=== PATIENT | female | born 1970 | race Caucasian/White ===

== ENCOUNTER → 2024-08-16 | Day surgery (SDC) | payer OTHER ==
[~2024-08-16] MED LIST: AMANTADINE100 MG; AZILECT0.5 MG PO; CYCLOBENZAPRINE5 MG PO; GLYCOPYRROLATE INJ 0.2 MG/ML VIAL ONE; LASIX40 MG PO; LIDOCAINE HCL 2% LOCAL INJ 5 ML SDV VIAL INJ ONE; MIDAZOLAM HCL 2 MG/2 ML VIAL ONE; POTASSIUM CHLO20 ME1 PO; PROPOFOL IV EMULSION 10 MG/ML 20 ML VIAL ONE; PROPRANOLOL HCL40 MG PO; SYNTHROID125 MCG PO
[2024-08-16] MEDS: LACTATED RINGER'S 1,000 ML ONE (09:54)
[2024-08-16 11:38] VITALS: TEMP 97.8
[2024-08-16 11:50] VITALS: BP 130/72; PULSE 56; RESP 15; O2SAT 99
== END | disposition home or self-care (01) ==
LOC: OR 08:45 → EDSEX 10:30
PROVIDERS: ATTEND Internal Medicine Gastroenterology
DX: Z12.11 Encounter for screening for malignant neoplasm of colon (principal); G20.A1 Parkinson's disease without dyskinesia, without mention of fluctuations; E06.3 Autoimmune thyroiditis; R03.0 Elevated blood-pressure reading, without diagnosis of hypertension; F17.290 Nicotine dependence, other tobacco product, uncomplicated; Z88.8 Allergy status to other drugs, medicaments and biological substances; Z01.810 Encounter for preprocedural cardiovascular examination; Z79.899 Other long term (current) drug therapy
CPT/HCPCS: 45330; 93005; J2003; J2250; J2704; J7121; 45378